=== PATIENT | male | born 1930 | race Caucasian/White ===

== ENCOUNTER 2016-04-08 03:58 | Observation (INO) | payer OTHER ==
--- NOTE | ~2016-04-08 | DS ---
Discharge Summary [facility] [address] [place]. [address] NAME: GALILEO VALADEZ : 34 STATUS : DIS Estella PAT#: [id number] AGE: 85 ADM/REG DATE : 04/08/16 MR#: [id number] REPORT SERV DATE: 04/10/16 DICTATED BY: BORIS CACERES DATE: 04/09/16 REPORT STATUS : Draft TRANSCRIBED BY: MODL DATE: 04/09/16 ADMISSION DATE: 04/08/2016 DISCHARGE DATE: 04/09/2016 PRINCIPAL DIAGNOSIS: Community-acquired pneumonia. SECONDARY DIAGNOSES: 1. Lung mass with prior history of lung cancer. 2. Coronary artery disease. 3. Chronic obstructive pulmonary disease with mild exacerbation. 4. Peripheral arterial disease. 5. Systemic inflammatory response syndrome. HISTORY OF PRESENT ILLNESS: Please see Dr. Vazquez's dictation 04/08/2016 in a.m. HOSPITAL COURSE: Admitted with a left upper lobe pneumonic infiltrate with productive cough, leukocytosis, high fevers consistent with systemic inflammatory response syndrome. The patient received broad spectrum antibiotics and aerosol therapy, still found to be wheezing, steroids were given with rapid resolution of wheezing. However, the infiltrate was noted to be very globular and concerning for the possibility of underlying lung mass. The patient was found to have been an active smoker up until a few weeks ago and with a prior history of lung cancer requiring lobar resection on the opposite side. A CT was done without contrast, revealing air bronchograms throughout the mass, revealing no underlying tumor, although the possibility there are very small neoplasm were under there could not be fully excluded. The patient had defervesced completely, he is fever free for 24 hours. Blood cultures were negative. The patient had improved at a greater pace and then the natural history of the disease would expect and he was able to be discharged despite inpatient status on 04/09/2016 in satisfactory condition, following after Dr. Garcia for followup x-rays in a few weeks continuing Levaquin to complete an eight-day course and albuterol metered-dose inhaler was also given. Otherwise, his medications would continue unchanged. BRANDON/ROCIO Boris Caceres M.D. / [id number] CC: Heydi Lundberg M.D.
--- NOTE | ~2016-04-08 | HP ---
History And Physical [address] [address] NAME: GALILEO VALADEZ : 34 STATUS : ADM Estella PAT#: [id number] AGE: 85 ADM/REG DATE : 04/08/16 MR#: [id number] REPORT SERV DATE: 04/08/16 DICTATED BY: DEREK VAZQUEZ DATE: 04/08/16 REPORT STATUS : Draft TRANSCRIBED BY: MODL DATE: 04/08/16 DATE OF ADMISSION: 04/08/2016 CHIEF COMPLAINT: Fever and shortness of breath. HISTORY OF PRESENT ILLNESS: This is an 85-year-old gentleman with history of COPD, coronary artery disease, peripheral artery disease, presenting with fever and shortness of breath. The patient reports that he started feeling malaise about three days ago. Over time, the patient developed quite profound fatigue and generalized weakness. About two days ago, the patient started having fevers along with cough that was productive of thick sputum. The patient was also feeling short of breath. The patient decided to come to the ER for further evaluation and care. In the ER, patient was actually found to be febrile on initial presentation with temperature of 102.8. The patient was otherwise hemodynamically stable. The patient was also able to maintain adequate oxygen saturations on room air. Initial lab evaluation revealed a white blood cell count of 15.1 and chest x-ray showed a left upper lobe infiltrates. Internal Medicine consultation was requested for admission of the patient for further evaluation and care. REVIEW OF SYSTEMS: The patient has had the fevers with chills. Also, 14-point review of systems reviewed and negative other than mentioned above. MEDICATIONS: 1. Aspirin 162.5 mg p.o. q.a.m. 2. Lipitor 20 mg p.o. at bedtime. 3. Coreg 3.125 mg p.o. b.i.d. 4. Cleocin 300 mg p.o. q.12 hours. 5. Plavix 75 mg p.o. q.a.m. 6. Imdur 30 mg p.o. daily. ALLERGIES: 1. PENICILLINS. 2. TETANUS VACCINES AND TOXOID. PAST MEDICAL HISTORY: 1. COPD. 2. Peripheral artery disease. 3. Coronary artery disease. PAST SURGICAL HISTORY: 1. Left internal iliac artery aneurysm. 2. Thoracic aneurysm repair. 3. Back surgery. 4. Appendectomy. History And Physical [address] [place]. [address] NAME: GALILEO VALADEZ : 34 STATUS : ADM Estella PAT#: [id number] AGE: 85 ADM/REG DATE : 04/08/16 MR#: [id number] REPORT SERV DATE: 04/08/16 DICTATED BY: DEREK VAZQUEZ DATE: 04/08/16 REPORT STATUS : Draft TRANSCRIBED BY: MODConnie DATE: 04/08/16 FAMILY HISTORY: Heart diseases. SOCIAL HISTORY: The patient does not smoke, drink alcohol, or use any illicit drugs. The patient is at home with his and his grandson who are both present in the ER at bedside. PHYSICAL EXAMINATION: VITAL SIGNS: Temperature was as high as 102.8 that improved to 99.9 by the time of my encounter with the patient. Blood pressure 134/73, pulse 83, respiratory rate is 18, saturating 96% on room air. NEUROLOGIC: The patient is alert and oriented x3 with no focal neurologic deficits. GENERAL: The patient is awake, does not appear to be in acute distress, and he is cooperative. NECK: No JVD. No lymphadenopathy. Normal thyroid. CHEST: No midline sternotomy scar and no tenderness to palpation. LUNGS: Clear to auscultation bilaterally with normal respiratory effort on room air. CARDIOVASCULAR: Regular rate and rhythm with no murmurs, rubs, or gallops, and PMI is nondisplaced. ABDOMEN: Soft, nontender, with active bowel sounds and no organomegaly. EXTREMITIES: No edema. Normal distal pulses. No calf tenderness. SKIN: Clean, dry, warm, and intact. LABORATORY DATA: Sodium is 139, potassium 3.7, chloride 102, BUN 18, creatinine 0.99, glucose 122, calcium 8.6, magnesium 1.9. White blood cell count is 15.1, hemoglobin 15.4, and platelets 155. INR is 1.2. Troponin is less than 0.02. BNP is 162.6. Flu panel was negative for A and B influenza. Lactate was 1.0. Urinalysis was negative for UTI. A procalcitonin level was actually only 0.06. Chest x-ray is personally interpreted and shows left upper lobe infiltrates. ASSESSMENT: This is an 85-year-old gentleman with history of coronary artery disease, chronic obstructive pulmonary disease, peripheral artery disease, presenting with a community-acquired pneumonia. 1. Community-acquired pneumonia. Meeting sepsis criteria but clinically patient is doing extremely well. 2. Chronic obstructive pulmonary disease with component of exacerbation. 3. Coronary artery disease. 4. Peripheral artery disease. PLAN: The plan is to admit the patient under telemetry monitoring for observation overnight. The patient will be given oxygen support and bronchodilator therapy. I will start the patient on empiric Levaquin. I will check blood cultures, sputum cultures, and procalcitonin level. I will also check urinary antigens and strep antigens for strep and Legionella. Also, given his COPD with a component of exacerbation, the patient will be given p.o. steroids to augment the antibiotic therapy. Otherwise, for the rest of stable past medical conditions, including coronary artery disease, and peripheral artery disease, I will continue home medications. Standard DVT prophylaxis. The patient is full code at this time. History And Physical [address] [address] NAME: GALILEO VALADEZ : 34 STATUS : ADM Estella PAT#: [id number] AGE: 85 ADM/REG DATE : 04/08/16 MR#: [id number] REPORT SERV DATE: 04/08/16 DICTATED BY: DEREK VAZQUEZ DATE: 04/08/16 REPORT STATUS : Draft TRANSCRIBED BY: ROCIO DATE: 04/08/16 MARKO/ROCIO Derek Vazquez MD / [id number] CC: Heydi Lundberg M.D.
[2016-04-08 03:11] LABS: BASOPHILS 0.1 %; BASOPHILS ABSOLUTE 0.02 10/3/uL (0.0-0.16); EOSINOPHILS 0.1 %; EOSINOPHILS ABSOLUTE 0.01 10/3/uL (0.0-0.53); HEMATOCRIT 43.5 % (40.0-51.0); HEMOGLOBIN 15.4 g/dL (13.6-17.8); IMMATURE GRANULOCYTES 0.5 %; IMMATURE GRANULOCYTES ABSOLUTE 0.07 10/3/uL (0.0-0.11); LYMPHOCYTES 6.4 %; LYMPHOCYTES ABSOLUTE 0.97 10/3/uL (0.67-4.30); MEAN CORPUS HGB CONC 35.4 g/dL (32.0-36.0); MEAN CORPUSCULAR HEMOGLOB 32.2 pg (26.0-34.0); MEAN PLATELET VOLUME 9.3 fL (9.2-13.0); MONOCYTES 11.3 %; NEUTROPHILS 81.6 %; NEUTROPHILS ABSOLUTE 12.34 10/3/uL (2.02-8.40); PLATELET COUNT 155 10/3/uL (150-400); RBC DISTRIBUTION WIDTH 12.6 % (12.0-16.0); RED CELL COUNT 4.78 10/6/uL (4.7-6.1)
[2016-04-08 03:12] LABS: ER CBC TAT 0 Hrs 05 Mins; MANUAL DIFF NO %; WHITE BLOOD CELLS 15.1 10/3/uL (4.5-10.5)
[2016-04-08 03:19] LABS: INTERNATIONAL NORMAL RATI 1.2 UNITS (-); PROTIME (NOT ORD) 15.2 SEC (12.0-14.5)
[2016-04-08 03:29] LABS: BUN (BLOOD UREA NITROGEN) 18 MG/DL (6-23); CALCIUM, SERUM 8.6 MG/DL (8.5-10.4); CHEST PAIN PROFILE TAT 0 Hrs 22 Mins; CHLORIDE, SERUM 102 MMOL/L (96-112); CO2 (CARBON DIOXIDE) 28 MMOL/L (24-34); CREATININE 0.99 MG/DL (0.70-1.30); GFR AFRICAN AMERICAN 81 ML/MIN (>=60); GFR NON AFRICAN AMERICAN 70 ML/MIN (>=60); GLUCOSE, SERUM 122 MG/DL (60-99); POTASSIUM, SERUM 3.7 MMOL/L (3.5-5.3); SODIUM, SERUM 139 MMOL/L (135-148); TROPONIN I <0.02 NG/ML (<0.05)
[2016-04-08 03:35] LABS: INFLUENZA A SCREEN NEGATIVE (NEGATIVE); INFLUENZA B SCREEN NEGATIVE (NEGATIVE)
[2016-04-08 03:46] LABS: ASCORBIC ACID (UR NOT ORDER) NEG (NEG); BILIRUBIN, URINE NEGATIVE (NEG); ER URINALYSIS TAT 0 Hrs 00 Mins; KETONE, URINE NEGATIVE (NEG); LEUKOCYTE ESTERASE(NOT OR NEG (NEG); NITRITE (URINE) NEG (NEG); WBC (NOT ORDERED) (RFLEX) 4 (0-5)
[~2016-04-08 03:58] MED LIST: ALLEGRA-D24 HOUR PO; ASA5GR PO; ASABAYER PO; CORDARONE PO; COREG3 PO; COREG6 PO; CRESTOR10 PO; CYANO1000T PO; DOSTINEX PO; DURA25 TOP; FLOMAX4 PO; IMDUR30 PO; INSPRA25 PO; L20 PO; LEXAPRO10 PO; LIPITOR20 PO; MEDROLPAK4 PO; METHOC750B PO; MSCONT15 PO; NEUR300 PO; NORCO1 TA2 PO; PERCOCET1 TA4 PO; PLAVIX PO; PRAVACHOL40 MG PO; PROTONIX PO; SEV VITAMINS PO; V5 PO
[2016-04-08 04:16] LABS: PROCALCITONIN 0.06 ng/mL (<0.5)
[2016-04-08] MEDS ORDERED: CLEOCIN300 MG PO (04:39)
[2016-04-09 08:20] LABS: BASOPHILS 0 %; EOSINOPHILS 0 %; HEMATOCRIT 40.1 % (40.0-51.0); HEMOGLOBIN 13.9 g/dL (13.6-17.8); IMMATURE GRANULOCYTES 0.5 %; IMMATURE GRANULOCYTES ABSOLUTE 0.07 10/3/uL (0.0-0.11); LYMPHOCYTES 5.9 %; LYMPHOCYTES ABSOLUTE 0.91 10/3/uL (0.67-4.30); MEAN CORPUS HGB CONC 34.7 g/dL (32.0-36.0); MEAN CORPUSCULAR HEMOGLOB 31.6 pg (26.0-34.0); MEAN CORPUSCULAR VOLUME 91.1 fL (80-100); MEAN PLATELET VOLUME 9.5 fL (9.2-13.0); MONOCYTES 5.7 %; MONOCYTES ABSOLUTE 0.88 10/3/uL (0.21-1.20); NEUTROPHILS 87.9 %; NEUTROPHILS ABSOLUTE 13.69 10/3/uL (2.02-8.40); PLATELET COUNT 182 10/3/uL (150-400); RBC DISTRIBUTION WIDTH 12.8 % (12.0-16.0); WHITE BLOOD CELLS 15.6 10/3/uL (4.5-10.5)
[2016-04-09 08:27] LABS: BUN (BLOOD UREA NITROGEN) 19 MG/DL (6-23); CALCIUM, SERUM 8.8 MG/DL (8.5-10.4); CHLORIDE, SERUM 106 MMOL/L (96-112); CO2 (CARBON DIOXIDE) 27 MMOL/L (24-34); CREATININE 0.76 MG/DL (0.70-1.30); GFR AFRICAN AMERICAN 98 ML/MIN (>=60); GFR NON AFRICAN AMERICAN 84 ML/MIN (>=60); GLUCOSE, SERUM 138 MG/DL (60-99); POTASSIUM, SERUM 4.1 MMOL/L (3.5-5.3); SODIUM, SERUM 142 MMOL/L (135-148)
[2016-04-09 08:28] LABS: MANUAL DIFF NO %
[2016-04-09 09:39] LABS: PROCALCITONIN 0.31 ng/mL (<0.5)
[2016-04-09] MEDS ORDERED: LEVAQUIN5T PO (10:11)
[2016-04-09] MEDS ORDERED: PROAIR HFA INH (10:12)
== END 2016-04-09 10:54 | disposition home or self-care (01) ==
LOC: ER 03:58 → 4SO 05:26
PROVIDERS: Internal Medicine; Nurse Practitioner
DX: J18.9 Pneumonia, unspecified organism (principal); J44.1 Chronic obstructive pulmonary disease with (acute) exacerbation; R91.8 Other nonspecific abnormal finding of lung field; I25.10 Atherosclerotic heart disease of native coronary artery without angina pectoris; I73.9 Peripheral vascular disease, unspecified; R65.10 Systemic inflammatory response syndrome (SIRS) of non-infectious origin without acute organ dysfunction; Z79.82 Long term (current) use of aspirin; Z79.02 Long term (current) use of antithrombotics/antiplatelets; Z79.899 Other long term (current) drug therapy; Z88.0 Allergy status to penicillin; Z88.7 Allergy status to serum and vaccine; Z90.49 Acquired absence of other specified parts of digestive tract
CPT/HCPCS: 71010; 71250; 80048; 81001; 83605; 83735; 83880; 84145; 84484; 85025; 85610; 85730; 87040; 87449; 87804; 93005; 94640; 96365; 96372; 96375; 96376; 99285; A9270-GY; G0378; J0456; J1956; J2405; J2920